=== PATIENT | female | born 1950 | race Caucasian/White ===

== ENCOUNTER 2016-10-28 19:44 | Emergency (ER) | payer OTHER ==
[~2016-10-28] VITALS: Ht 154.9 cm; Wt 89.0 kg
[~2016-10-28 19:44] MED LIST: ACIPHEX20 MG PO; CELEBREX200 MG PO; CELEXA20 MG PO; CIPRO500 MG PO; DOCUSATE SODIU100 MG PO; HYDROCHLOROTHIA25 MG PO; HYDROCODON-ACE1 EAC7 PO; HYDROMORPHONE HC2 MG PO; LIDODERM 5% P1 PATCH TD; LORAZEPAM0.5 MG PO; MELOXICAM7.5 MG PO; NAPROSYN500 MG PO; NAPROXEN500 MG PO; PREDNISONE20 MG PO; RABEPRAZOLE SOD20 MG PO; SENNA-TIME S T1 EACH PO; TAMSULOSIN HCL0.4 MG PO; TESSALON PERLE100 MG PO; TRAMADOL HCL50 MG PO; ULTRAM50 MG PO; VENTOLIN HFA18 GM IH; WARFARIN SODIUM4 MG PO; ZITHROMAX Z-PA250 MG PO; ZOFRAN ODT4 MG PO
[2016-10-28] MEDS ORDERED: LORATADINE10 M2 PO (23:44)
[2016-10-28] MEDS ORDERED: PREDNISONE20 MG PO (23:44)
[2016-10-29 00:05] VITALS: BP 143/65
== END 2016-10-29 00:06 | disposition home or self-care (01) ==
LOC: EME 19:44
DX: J30.9 Allergic rhinitis, unspecified (principal); J45.901 Unspecified asthma with (acute) exacerbation; K21.9 Gastro-esophageal reflux disease without esophagitis; Z87.891 Personal history of nicotine dependence
CPT/HCPCS: 71020; 87651 90; 99281; 99284; J7512